=== PATIENT | male | born 1980 | race Caucasian/White ===

== ENCOUNTER 2023-05-14 19:28 | Emergency (ER) | payer MEDICAID ==
[~2023-05-14] VITALS: Ht 198.1 cm; Wt 77.1 kg
[2023-05-14] MEDS ORDERED: ACETAMINOPHEN ES 500 MG TABLET PO ONE (22:00)
[2023-05-14] MEDS ORDERED: ACETAMINOPHEN ES 500 MG TABLET ONE (22:03)
[2023-05-14 22:42] LABS: BASOPHILS # (AUTO) 0.1 K/UL (0.0-0.2); BASOPHILS % (AUTO) 2.2 % (0.0-2.0); DIFFERENTIAL COMMENT 0; EOSINOPHILS % (AUTO) 0.7 % (0.0-7.0); HEMATOCRIT 39.4 % (36.7-47.1); HEMOGLOBIN 13.4 g/dL (12.5-16.3); LYMPHOCYTES # (AUTO) 2.8 K/uL (0.8-4.8); LYMPHOCYTES % (AUTO) 42.9 % (20.5-51.5); MEAN CORPUSCULAR HEMOGLOBIN 34.9 uug (23.8-33.4); MEAN CORPUSCULAR HGB CONC 34 g/dL (32.5-36.3); MEAN CORPUSCULAR VOLUME 102.8 fL (73.0-96.2); MONOCYTES # (AUTO) 0.4 K/uL (0.1-1.30); MONOCYTES % (AUTO) 6.8 % (0.0-11.0); NEUTROPHILS # (AUTO) 3.1 K/uL (1.8-8.9); NEUTROPHILS % (AUTO) 47.4 % (38.5-71.5); PLATELET COUNT (AUTO) 256 K/uL (152-348); RED BLOOD CELL COUNT(AUTO) 3.83 MIL/uL (4.06-5.63); RED CELL DISTRIBUTION WIDTH 15.4 % (12.1-16.2); WHITE BLOOD COUNT (AUTO) 6.5 K/uL (3.6-10.2)
[2023-05-14 22:43] LABS: CALCIUM 8.4 mg/dL (8.5-10.1); CREATININE 0.9 mg/dL (0.6-1.3); POTASSIUM 3.9 mmol/L (3.5-5.1)
[2023-05-14 22:49] LABS: ALBUMIN 3.7 g/dL (3.4-5.0); BILIRUBIN,TOTAL 0.4 mg/dL (0.2-1.0); MAGNESIUM 1.6 mg/dL (1.8-2.4); TOTAL PROTEIN, SERUM 7.5 g/dL (6.4-8.2)
[2023-05-15] MEDS ORDERED: hydrOXYzine HCL 25 MG TABLET PO ONE (01:15)
[2023-05-15] MEDS ORDERED: hydrOXYzine HCL 25 MG TABLET ONE (01:30)
[2023-05-15] MEDS ORDERED: THIA100T74 PO (04:12)
[2023-05-15] MEDS ORDERED: MAGN400C PO (04:12)
[2023-05-15] MEDS ORDERED: MULT-1045 PO (04:12)
[2023-05-15 04:24] VITALS: BP 136/88; O2SAT 96
== END 2023-05-15 06:19 | disposition home or self-care (01) ==
LOC: ER 19:30
DX: F10.229 Alcohol dependence with intoxication, unspecified (principal); M54.50 Low back pain, unspecified; E83.42 Hypomagnesemia; Z76.5 Malingerer [conscious simulation]; R03.0 Elevated blood-pressure reading, without diagnosis of hypertension; I48.91 Unspecified atrial fibrillation; Z98.890 Other specified postprocedural states; Z79.899 Other long term (current) drug therapy; Z60.2 Problems related to living alone
CPT/HCPCS: 36415; 72100; 83690; 83735; 85025; 85610; A4606; A4663; A9150; G0480

== ENCOUNTER 2023-09-19 18:42 | Emergency (ER) | payer OTHER ==
[~2023-09-19] VITALS: Ht 198.1 cm; Wt 81.6 kg
[~2023-09-19 18:42] MED LIST: MAGN400C PO; MULT-1045 PO; THIA100T74 PO
[2023-09-19] MEDS ORDERED: CHLORDIAZEPOXIDE HCL 25 MG CAPSULE ONE (22:31)
[2023-09-19] MEDS: CHLORDIAZEPOXIDE HCL 25 MG CAPSULE PO ONE (22:32)
[2023-09-19] MEDS ORDERED: CHLO25CA22 PO (22:34)
[2023-09-19 22:43] VITALS: BP 138/87; O2SAT 97
[2023-09-19] MEDS ORDERED: LORA-259 PO (22:52)
== END 2023-09-19 22:44 | disposition home or self-care (01) ==
LOC: ER 18:43
DX: F10.239 Alcohol dependence with withdrawal, unspecified (principal); F41.9 Anxiety disorder, unspecified; I48.91 Unspecified atrial fibrillation; F17.210 Nicotine dependence, cigarettes, uncomplicated; Z79.899 Other long term (current) drug therapy; Z98.890 Other specified postprocedural states; Z60.2 Problems related to living alone; Y90.0 Blood alcohol level of less than 20 mg/100 ml
CPT/HCPCS: A4606; A4663

== ENCOUNTER 2024-09-17 16:42 | Emergency (ER) | payer OTHER ==
[~2024-09-17] VITALS: Ht 198.1 cm; Wt 83.9 kg
[~2024-09-17 16:42] MED LIST changes: +LORA-259 PO
[2024-09-17] MEDS ORDERED: CHLORDIAZEPOXIDE HCL 25 MG CAPSULE ONE (17:22)
[2024-09-17] MEDS ORDERED: LORAZEPAM 2 MG/1 ML VIAL ONE (17:23)
[2024-09-17] MEDS: CHLORDIAZEPOXIDE HCL 25 MG CAPSULE PO ONE (17:32)
[2024-09-17] MEDS: LORAZEPAM 2 MG/1 ML VIAL IV ONE (17:32)
[2024-09-17 17:33] LABS: EOSINOPHILS # (AUTO) 0.1 K/uL (0.0-0.7); EOSINOPHILS % (AUTO) 1.4 % (0.0-7.0); HEMATOCRIT 34.2 % (36.7-47.1); HEMOGLOBIN 11.6 g/dL (12.5-16.3); LYMPHOCYTES # (AUTO) 1.1 K/uL (0.8-4.8); LYMPHOCYTES % (AUTO) 31.1 % (20.5-51.5); MEAN CORPUSCULAR HEMOGLOBIN 36.5 uug (23.8-33.4); MEAN CORPUSCULAR HGB CONC 34 g/dL (32.5-36.3); MEAN CORPUSCULAR VOLUME 107.5 fL (73.0-96.2); MONOCYTES # (AUTO) 0.8 K/uL (0.1-1.30); NEUTROPHILS # (AUTO) 1.6 K/uL (1.8-8.9); NEUTROPHILS % (AUTO) 45.5 % (38.5-71.5); PLATELET COUNT (AUTO) 89 K/uL (152-348); RED BLOOD CELL COUNT(AUTO) 3.18 MIL/uL (4.06-5.63); RED CELL DISTRIBUTION WIDTH 17.7 % (12.1-16.2); WHITE BLOOD COUNT (AUTO) 3.6 K/uL (3.6-10.2)
[2024-09-17 17:42] LABS: DIFFERENTIAL COMMENT 1
[2024-09-17 17:43] LABS: LYMPHOCYTES % (MANUAL) 35 % (20-40); NEUTROPHILS % (MANUAL) 45 % (42-75)
[2024-09-17 17:44] LABS: BASOPHILS % (MANUAL) 0 % (0-2); EOSINOPHILS % (MANUAL) 2 % (0-8); MONOCYTES % (MANUAL) 18 % (2-10)
[2024-09-17 17:47] LABS: CARBON DIOXIDE 23 mmol/L (21-32); CHLORIDE 103 mmol/L (98-107); CREATININE 0.6 mg/dL (0.6-1.3); GLUCOSE 94 mg/dL (74-106); POTASSIUM 4.5 mmol/L (3.5-5.1); SODIUM SERUM 138 mmol/L (136-145); UREA NITROGEN, BLOOD 5 mg/dL (7-18)
[2024-09-17 17:52] LABS: ALANINE AMINOTRANSFERASE 52 U/L (16-63); ALBUMIN 3.7 g/dL (3.4-5.0); ALKALINE PHOSPHATASE 61 U/L (50-136); ASPARTATE AMINOTRANSFERASE 66 U/L (15-37); BILIRUBIN,DIRECT 0.2 mg/dL (0.0-0.2); BILIRUBIN,TOTAL 0.3 mg/dL (0.2-1.0); MAGNESIUM 2.1 mg/dL (1.8-2.4); TOTAL PROTEIN, SERUM 7.6 g/dL (6.4-8.2)
[2024-09-17] MEDS ORDERED: CHLO25CA22 PO (18:56)
[2024-09-17] MEDS ORDERED: CYANOCOBALAMIN 1000 MCG/ML VIAL ONE (21:17)
[2024-09-17] MEDS: CYANOCOBALAMIN 1000 MCG/ML VIAL IM ONE (21:23)
[2024-09-17 21:59] VITALS: BP 104/68; O2SAT 98
== END 2024-09-17 22:00 | disposition home or self-care (01) ==
LOC: ER 16:49
DX: F10.229 Alcohol dependence with intoxication, unspecified (principal); F17.210 Nicotine dependence, cigarettes, uncomplicated; N63.0 Unspecified lump in unspecified breast; Z86.79 Personal history of other diseases of the circulatory system; Z85.47 Personal history of malignant neoplasm of testis; Z60.2 Problems related to living alone; Y90.8 Blood alcohol level of 240 mg/100 ml or more
CPT/HCPCS: 80076; 80048; 82550; 82607; 83735; 85007; 85025; 36415; 99284; 96374; 96372; 80320; J3420; J2060; J7040; A4606; A4663; G0480